=== PATIENT | female | born 1995 | race Caucasian/White ===

== ENCOUNTER 2016-08-09 21:59 | Emergency (ER) | payer OTHER ==
[2016-08-09 22:12] VITALS: BP 136/86
[2016-08-09] MEDS ORDERED: Ibuprofen TAB* 600 MG PO ONE (22:41)
--- NOTE | 2016-08-09 23:42 | ED ---
Upper Extremity Pain - HPI Summary HPI Summary: Rt hand dominant pt here w/ Rt wrist pain x 1 week. Progressively worsening. Burning aching pain in wrist that radiates up forearm/arm/shoulder and into thumb w/ wrist flexion and extension. 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 Denies numbness, weakness but difficulty gripping, carrying items due to pain. No previous h/o CTS. No acute injury to report. Denies bruising or redness. Has not tried anything for this pain yet. - History of Current Complaint Chief Complaint: EDExtremityUpper Stated Complaint: WRIST PAIN Time Seen by Provider: 08/09/16 22:40 Hx Obtained From: Patient Hx Last Menstrual Period: 07/24/13 - Allergies/Home Medications Allergies/Adverse Reactions: Allergies Allergy/AdvReac Type Severity Reaction Status Date / Time No Known Allergies Allergy Verified 02/14/16 17:55 PMH/Surg Hx/FS Hx/Imm Hx Previously Healthy: Yes Endocrine/Hematology History: Denies: Hx Diabetes, Hx Thyroid Disease Cardiovascular History: Denies: Hx Hypertension Respiratory History: Denies: Hx Asthma, Hx Chronic Obstructive Pulmonary Disease (COPD) GI History: Denies: Hx Ulcer Musculoskeletal History: Denies: Hx Arthritis, Hx Tendonitis, Hx of Fracture(s) Psychiatric History: Reports: Hx Anxiety, Hx Depression - Pt states she speaks to Dr. Dumont, PCP, Other Psychiatric Issues/Disorders - PTSD, possible ADD Denies: Hx Eating Disorder, Hx of Violent Episodes Against Others Infectious Disease History: Denies: Hx Hepatitis, Hx Human Immunodeficiency Virus (HIV), Traveled Outside the [place] in Last 30 Days - Family History Known Family History: Positive: None - Social History Occupation: Employed Full-time Lives: With Family Alcohol Use: None Hx Substance Use: No Substance Use Type: Reports: None Substance Use Comment - Amount & Last Used: denies drug use with Hx Tobacco Use: No Smoking Status (MU): Former Smoker Type: Cigarettes Amount Used/How Often: 5-6 cig./day Have You Smoked in the Last Year: Yes Review of Systems Negative: Fever, Chills Negative: Chest Pain Negative: Shortness Of Breath Gastrointestinal: Negative Positive: no symptoms reported Musculoskeletal: Other - see HPI Negative: Rash, Bruising Neurological: Other - see HPI Psychological: Normal All Other Systems Reviewed And Are Negative: Yes Physical Exam Triage Information Reviewed: Yes Vital Signs On Initial Exam: Initial Vitals Temp Pulse Resp BP Pulse Ox 97.4 F 106 20 136/86 100 08/09/16 22:10 08/09/16 22:10 08/09/16 22:10 08/09/16 22:10 08/09/16 22:10 Vital Signs Reviewed: Yes Appearance: Positive: Well-Appearing, No Pain Distress, Well-Nourished Skin: Positive: Warm, Dry - no erythema, no ecchymosis over affected area Head/Face: Positive: Normal Head/Face Inspection Eyes: Positive: Normal, EOMI ENT: Positive: Hearing grossly normal, Pharynx normal - mucosa moist Respiratory/Lung Sounds: Positive: Breath Sounds Present Cardiovascular: Positive: Normal, Pulses are Symmetrical in both Upper and Lower Extremities Musculoskeletal: Positive: Pain @ - Rt wrist extensor tendons are TTP; no edema or deformity observed - FROM wrist and fingers but hurts w/ attempt with full tax manager strength; limited wrist ROM d/t pain w/ flexion/extension; FROM elbow, shoulder and neck w/o pain or limitation Neurological: Positive: Normal, Sensory/Motor Intact, Alert, Oriented to Person Place, Time, CN Intact II-III Psychiatric: Positive: Other - flat affect Diagnostics - Vital Signs Vital Signs Temp Pulse Resp BP Pulse Ox 08/09/16 22:10 97.4 F 106 20 136/86 100 - Laboratory Lab Statement: Any lab studies that have been ordered have been reviewed, and results considered in the medical decision making process. Course/Dx - Course Course Of Treatment: Suspect pt's wrist/forearm pain are from reptitive motion causing tendonitis. Advised rest, heat w/ gentle stretches followed by ice, ibuprofen with food and wearing sopportive wrist gaurd. Follow-up with PCP. - Diagnoses Provider Diagnoses: Right wrist tendinitis Discharge - Discharge Plan Condition: Stable Disposition: HOME Patient Education Materials: Tendinitis (ED) Forms: *Work Release Referrals: Julia Espino MD [Primary Care Provider] - Additional Instructions: You appear to have a tendonitis of your wrist. You may try ice alternating with heat and gentle stretches. Rest and wear cock-up splint until cleared by PCP. You may also take ibuprofen and use topical analgesic rubs for pain relief. Follow-up with PCP this week. Call tomorrow to schedule an appointment.
--- NOTE | 2016-08-10 07:49 | RAD ---
INDICATION: Right wrist injury. TECHNIQUE: 3 views of the right wrist were obtained. FINDINGS: The bones are in normal alignment. No fracture is seen. Joint spaces appear maintained. IMPRESSION: NO EVIDENCE FOR FRACTURE.
== END 2016-08-10 00:03 | disposition home or self-care (01) ==
LOC: ED 21:59
DX: M77.9 Enthesopathy, unspecified (principal); M25.531 Pain in right wrist; Z87.891 Personal history of nicotine dependence
CPT/HCPCS: 99282; A9270-GY

== ENCOUNTER 2016-08-20 16:37 | Emergency (ER) | payer OTHER ==
[2016-08-20 17:13] VITALS: BP 111/83
--- NOTE | 2016-08-20 17:22 | UC ---
Lower Extremity/Ankle HPI - HPI Summary HPI Summary: Last night, she stubbed her right fourth toe on the couch. It was red and swollen. She took Ibuprofen and Tylenol with minimal relief of pain. She went to sleep, and when she woke up, the toe was more bruised. It hurts to bear weight on the foot. - History of Current Complaint Chief Complaint: UCLowerExtremity Stated Complaint: RIGHT FOOT,FOURTH TOE INJURY Time Seen by Provider: 08/20/16 17:12 Hx Obtained From: Patient Hx Last Menstrual Period: 08/20/16 Onset/Duration: Sudden Onset Severity Initially: Moderate Severity Currently: Moderate Aggravating Factor(s): Standing, Ambulation Alleviating Factor(s): Ice, OTC Meds Able to Bear Weight: Yes - With pain - Allergies/Home Medications Allergies/Adverse Reactions: Allergies Allergy/AdvReac Type Severity Reaction Status Date / Time No Known Allergies Allergy Verified 08/20/16 16:57 PMH/Surg Hx/FS Hx/Imm Hx Previously Healthy: Yes Endocrine History Of: Denies: Diabetes, Thyroid Disease Cardiovascular History Of: Denies: Cardiac Disorders, Hypertension Respiratory History Of: Denies: COPD, Asthma GI/ History Of: Denies: Ulcer Psychological History Of: Reports: Anxiety, Depression - Pt states she speaks to Dr. Dumont, PCP - Surgical History Surgical History: Yes Surgery Procedure, Year, and Place: - Family History Known Family History: Positive: None - Social History Occupation: Employed Part-time Lives: With Family Alcohol Use: None Substance Use Type: None Substance Use Comment - Amount & Last Used: denies drug use with Smoking Status (MU): Light Every Day Tobacco Smoker Type: Cigarettes Amount Used/How Often: 5-6 cig./day Have You Smoked in the Last Year: Yes When Did the Patient Quit Smoking/Using Tobacco: 2 MOS AGO. Household Exposure Type: Cigarettes - Immunization History Most Recent Influenza Vaccination: [facility]N Most Recent Tetanus Shot: unknown Most Recent Pneumonia Vaccination: NONE Vaccination Up to Date: Yes Review of Systems Constitutional: Negative Skin: Negative Eyes: Negative ENT: Negative Respiratory: Negative Cardiovascular: Negative Gastrointestinal: Negative Genitourinary: Negative Motor: Negative Neurovascular: Negative Musculoskeletal: Edema - Right toes, Other: - Bruising of right toes Neurological: Negative Psychological: Negative All Other Systems Reviewed And Are Negative: Yes Physical Exam Triage Information Reviewed: Yes Appearance: Well-Appearing, No Pain Distress, Well-Nourished Vital Signs: Initial Vital Signs Temp 98.9 F 08/20/16 16:58 Pulse 84 08/20/16 16:58 Resp 16 08/20/16 16:58 BP 111/83 08/20/16 16:58 Pulse Ox 98 08/20/16 16:58 Vital Signs Reviewed: Yes Eye Exam: Normal Eyes: Positive: Conjunctiva Clear ENT Exam: Normal Neck exam: Normal Neck: Positive: Supple, Nontender Respiratory Exam: Normal Respiratory: Positive: Chest non-tender, Lungs clear, Normal breath sounds Cardiovascular Exam: Normal Cardiovascular: Positive: RRR, No Murmur Musculoskeletal: Positive: Edema @ - Right third and fourth toes, Other: - Ecchymosis of right distal fourth toe. Pain with palpation. Good sensation of right toes and dorsalis pedis pulse is strong. Neurological Exam: Normal Neurological: Positive: Alert, Muscle Tone Normal Psychological Exam: Normal Psychological: Positive: Normal Response To Family, Age Appropriate Behavior Skin Exam: Normal Lower Extremity Course/Dx - Course Course Of Treatment: Patient is to follow-up with orthopedics in two weeks for suspected toe fracture. We will provide a post-op shoe for comfort with walking. We have instructed her to take Ibuprofen for pain and continue to use ice for the swelling. - Differential Dx/Diagnosis Differential Diagnosis/HQI/PQRI: Contusion, Dislocation, Fracture (Closed) Provider Diagnoses: R 4th toe base of middle phalanx fracture Discharge - Discharge Plan Condition: Stable Disposition: HOME Patient Education Materials: Toe Fracture (ED) Print Language: CHADIAN Referrals: Julia Espino MD [Primary Care Provider] - Terese Damon MD [Medical Doctor] - 2 Weeks Additional Instructions: This is most likely a toe fracture. We would like for you to follow-up with Dr. Damon in two weeks. We will provide a shoe for comfort with walking. Continue to ice and use Ibuprofen for swelling.
--- NOTE | 2016-08-20 18:01 | RAD ---
INDICATION: Fourth toe injury COMPARISON: None TECHNIQUE: AP, lateral, and oblique views were obtained. FINDINGS: There may be a tiny avulsion fracture from the dorsal aspect of the base of the middle phalanx. The bony structures, joint spaces, and soft tissues are otherwise normal IMPRESSION: PROBABLE TINY AVULSION FRACTURE DORSAL ASPECT OF THE BASE OF THE MIDDLE PHALANX
== END 2016-08-20 18:05 | disposition home or self-care (01) ==
LOC: UCCORT 16:37
DX: S92.531A Displaced fracture of distal phalanx of right lesser toe(s), initial encounter for closed fracture (principal); W22.03XA Walked into furniture, initial encounter; Y93.9 Activity, unspecified; Y92.9 Unspecified place or not applicable; F41.9 Anxiety disorder, unspecified; Z87.891 Personal history of nicotine dependence
CPT/HCPCS: 99212; G0463

== ENCOUNTER 2016-10-22 19:30 | Emergency (ER) | payer MEDICAID, OTHER ==
[2016-10-22 20:10] VITALS: BP 122/106
[2016-10-22] MEDS ORDERED: NS 0.9% 1000 ML* 2,000 ML IV ONE (20:16)
[2016-10-22] MEDS ORDERED: Morphine INJ* 4 MG/ML 1 ML SYRINGE IV ONE (20:16)
[2016-10-22] MEDS ORDERED: Ondansetron INJ* 2 MG/ML VIAL IV ONE (20:16)
[2016-10-22] MEDS ORDERED: Ondansetron ODT TAB* 4 MG PO ONE (20:29)
[2016-10-22] MEDS ORDERED: oxyCODONE/Acetamin 5/325 MG* TAB PO ONE (20:30)
[2016-10-22] MEDS ORDERED: Ondansetron ODT TAB* 4 MG ONE (20:32)
--- NOTE | 2016-10-22 21:52 | RAD ---
HISTORY: Left lower quadrant pain COMPARISONS: None TECHNIQUE: Multiple transverse and longitudinal ultrasound images were obtained of the pelvis using grayscale, color Doppler, and M-Mode Doppler imaging using the transabdominal transducer. FINDINGS: UTERUS: The uterus is normal in shape, size, contour, and echotexture. GESTATION: There is a single live intrauterine gestation. The crown-rump length measures 2.21 cm for a gestational age of 9 weeks, 0 days. The HELIO is May [birth year] 2012 based on the crown-rump length.. cardiac motion is detected at a rate of 165 beats per minute. movement is not identified. anatomy cannot be assessed secondary to early dates. The amniotic fluid is qualitatively normal. There are no retroplacental fluid collections. CUL-DE-SAC: There is no free fluid within the cul-de-sac. RIGHT OVARY: The right ovary measures 2.5 x 2.1 x 2.1 cm. LEFT OVARY: The left ovary measures 2.4 x 1.5 x 2.1 cm. BLADDER: The visualized bladder is unremarkable. IMPRESSION: SINGLE LIVE UTERINE GESTATION AT 9 WEEKS AND 0 DAYS BY CROWN-RUMP LENGTH
--- NOTE | 2016-10-22 21:53 | RAD ---
HISTORY: Left lower quadrant pain, left flank pain COMPARISONS: Pelvic ultrasound dated October 22, 2016 TECHNIQUE: Multiple transverse and longitudinal ultrasound images were obtained of the left kidney using grayscale and color Doppler imaging. FINDINGS: RIGHT KIDNEY: No images are submitted of the right kidney LEFT KIDNEY: The left kidney is normal in shape, size, contour, and echogenicity. There is no hydronephrosis or nephrolithiasis. The left kidney measures 12 x 5 x 5.3 cm. BLADDER: No images are submitted of the bladder. AORTA AND IVC: No images are submitted of the vasculature. RETROPERITONEUM: Unremarkable. OTHER: Again noted is a single live intrauterine gestation IMPRESSION: NO LEFT HYDRONEPHROSIS OR NEPHROLITHIASIS
[2016-10-22 23:11] LABS: Urine Bacteria 1+ (Absent); Urine Bilirubin Negative (Negative); Urine Glucose Negative (Negative); Urine Nitrite Negative (Negative)
[2016-10-22] MEDS ORDERED: Nitrofurantoin Macrocrystals* 100 MG CAP PO ONE (23:46)
--- NOTE | 2016-10-23 04:39 | ED ---
Claribel Kumar Rebecca, scribed for Geovany Montgomery MD on 10/22/16 at 2020 . - HPI Summary HPI Summary: Pt is a 21 y/o F who presents to ED c/o L flank and LLQ pain. Pain began suddenly last night at 2300 and has been constant since onset. Pain is discrete to the LLQ and L flank without radiation. Pain is currently severe, ranked 10/ 10 and characterized as sharp/stabbing. Sx aggravated by deep breaths, alleviated by nothing and she has not taken anything to treat the pain. Additionally c/o painful urination (characterized as stinging, not burning). Notes vomiting, which is typical morning sickness. Denies fever, chills, diarrhea, dysuria, vaginal discharge, vaginal bleeding, CP, SOB, sore throat and rhinorrhea. Denies any recent illness. Notes 2 not engorged ticks found on her earlier today. Unknown blood type. PMHx kidney infection. No PMHx kidney stones. FHx kidney stones and kidney infection (mother and grandmother). PSHx C- Section. She is 2 months with her LNMP at the end of June/ beginning of July. Has been seen by [facility] for her current . A0, giving 6 months ago to twins that she is currently bottle feeding. - History of Current Complaint Chief Complaint: EDFlankPain Stated Complaint: LEFT FLANK PAIN Time Seen by Provider: 10/22/16 20:00 Hx Obtained From: Patient Chief Complaint: Pain Onset/Duration: Started Days Ago - Last night at 2300, Still Present Timing: Constant Severity: Moderate Current Severity: Severe Pain Intensity: 10 Location of Pain: Left Side - LLQ, Flank - Left flank Character: Sharp Aggravating Factors: Other: - Deep breaths Alleviating Factors: Nothing Associated Signs and Symptoms: Positive: Urinary Symptoms - Painful urination ( sharp, but burning); Denies dysuria, Vomiting - typical morning sickness. Negative: Fever, Vaginal Bleeding or Discharge - Assessment Hx Now: Yes - 2 months SAB: 0 IEA: 0 - Additional Pertinent History Maternal Blood Type and Rh: O Positive - Allergies/Home Medications Allergies/Adverse Reactions: Allergies Allergy/AdvReac Type Severity Reaction Status Date / Time No Known Allergies Allergy Verified 10/22/16 19:43 PMH/Surg Hx/FS Hx/Imm Hx Endocrine/Hematology History: Denies: Hx Diabetes, Hx Thyroid Disease Cardiovascular History: Denies: Hx Hypertension Respiratory History: Denies: Hx Asthma, Hx Chronic Obstructive Pulmonary Disease (COPD) GI History: Denies: Hx Ulcer History: Reports: Hx Kidney Infection Denies: Hx Kidney Stones Musculoskeletal History: Denies: Hx Arthritis, Hx Tendonitis Psychiatric History: Reports: Hx Anxiety, Hx Depression - Pt states she speaks to Dr. Dumont, PCP, Other Psychiatric Issues/Disorders - PTSD, possible ADD Denies: Hx Eating Disorder, Hx of Violent Episodes Against Others - Surgical History Surgery Procedure, Year, and Place: Infectious Disease History: Denies: Hx Hepatitis, Hx Human Immunodeficiency Virus (HIV), Traveled Outside the [place] in Last 30 Days - Family History Known Family History: Positive: Renal Disease - Mother and grandmother, Other - Kidney stones (mother and grandmother) - Social History Alcohol Use: None Hx Substance Use: No Substance Use Type: Reports: None Substance Use Comment - Amount & Last Used: denies drug use with Hx Tobacco Use: No Smoking Status (MU): Former Smoker Type: Cigarettes Amount Used/How Often: 5-6 cig./day Have You Smoked in the Last Year: Yes Review of Systems Negative: Fever, Chills Negative: Sore Throat, Nasal Discharge Negative: Chest Pain Negative: Shortness Of Breath Positive: Abdominal Pain - LLQ, Vomiting - typical morning sickness. Negative: Diarrhea Positive: flank pain - L flank pain, pain - Painful urination (sharp), other - Denies vaginal bleeding or vaginal discharge. Negative: dysuria All Other Systems Reviewed And Are Negative: Yes Physical Exam - Summary Physical Exam Summary: The patient is well-nourished in no acute pain and in mild distress. The skin is warm and dry and skin color reflects adequate perfusion. Shows good skin turgor. HEENT: The head is normocephalic and atraumatic. The pupils are equal and reactive. The conjunctivae are clear and without drainage. Nares are patent and without drainage. Mouth reveals moist mucous membranes and the throat is without erythema and exudate. The external ears are intact. The ear canals are patent and without drainage. The tympanic membranes are intact. Neck is supple with full range of motion and non-tender. There are no carotid bruits. There is no neck vein distension. Respiratory: Chest is non-tender. Lungs are clear to auscultation and breath sounds are symmetrical and equal. Cardiovascular: Hear is regular rate and rhythm. There is no murmur or rub auscultated. There is no peripheral edema and pulses are symmetrical and equal. Abdomen: The abdomen is soft with L-sided abdominal pain and L flank pain with no guarding and no rebound. There is L CVA tenderness. There are normal bowel sounds heard in all four quadrants and there is no organomegaly palpated. Musculoskeletal: There is no back pain noted. Extremities are non-tender with full range of motion. There is good capillary refill. There is no peripheral edema or calf tenderness elicited. Neurological: Patient is alert and oriented to person, place and time. The patient has symmetrical motor strength in all four extremities. Cranial nerves are grossly intact. Deep tendon reflexes are symmetrical and equal in all four extremities. Psychiatric: The patient has an appropriate affect and does not exhibit any anxiety or depression. - Physical Exam Triage Information Reviewed: Yes Vital Signs Reviewed: Yes Diagnostics - Vital Signs Vital Signs Temp Pulse Resp BP Pulse Ox 10/22/16 19:40 99.2 F 87 16 110/68 99 - Laboratory Lab Results: Lab Results 10/22/16 Range/Units 22:55 Urine Color Yellow Urine Appearance Cloudy Urine pH 7.0 (5-9) Ur Specific [place] 1.003 L (1.010-1.030) Urine Protein Negative (Negative) Urine Ketones Negative (Negative) Urine Blood 2+ H (Negative) Urine Nitrate Negative (Negative) Urine Bilirubin Negative (Negative) Urine Urobilinogen Negative (Negative) Ur Leukocyte Esterase 3+ H (Negative) Urine WBC (Auto) 2+(11-20/hpf) H (Absent) Urine RBC (Auto) 1+(3-5/hpf) H (Absent) Ur Squamous Epith Cells Present H (Absent) Urine Bacteria 1+ H (Absent) Urine Glucose Negative (Negative) Lab Statement: Any lab studies that have been ordered have been reviewed, and results considered in the medical decision making process. - Ultrasound No standard instances Ultrasound Interpretation Completed By: Radiologist - US: SINGLE LIVE UTERINE GESTATION AT 9 WEEKS AND 0 DAYS BY CROWN-RUMP LENGTH. Renal US: NO LEFT HYDRONEPHROSIS OR NEPHROLITHIASIS Course/Dx - Course Assessment/Plan: Pt is a 2 months 21 y/o F with a CC of sudden onset, severe LLQ and L flank pain since last night at 2300. Additionally c/o painful urination (characterized as stinging, not burning). Notes vomiting, which is typical morning sickness. Denies fever, chills, diarrhea, dysuria, vaginal discharge, vaginal bleeding, CP, SOB, sore throat and rhinorrhea. PMHx kidney infection. FHx kidney infeciton and kidney stones. Pt refused labs though she ocnitnued to request pain and nausea medication. US reveals: "SINGLE LIVE UTERINE GESTATION AT 9 WEEKS AND 0 DAYS BY CROWN-RUMP LENGTH." Renal US reveals : "NO LEFT HYDRONEPHROSIS OR NEPHROLITHIASIS." US reveals: color: yellow, appearance: cloudy, specific gravity: 1.003, blood: 2+, leukocyte esterase: 3+, WBC: 2+, RBC: 1+, squamous epitherlial cells: present and bacteria: 1+. In the ED course, pt received Zofran PO. Pt will be D/C to home with Dx of UTI and Rx for Macrobid. - Differential Diagnosis/HQI/PQRI: Other: - uti, ectopic - Diagnoses Provider Diagnoses: UTI (urinary tract infection), Discharge - Discharge Plan Condition: Stable Disposition: HOME Prescriptions: Nitrofurantoin Monohyd Macro [Macrobid] 100 mg PO BID #[id number] cap Patient Education Materials: Urinary Tract Infection in (ED) Referrals: Julia Espino MD [Primary Care Provider] - 3 Days The documentation as recorded by the Claribel erickson Rebecca accurately reflects the service I personally performed and the decisions made by , Geovany Montgomery MD.
--- NOTE | 2016-10-25 11:13 | PN ---
Progress Note - Progress Note Note: Patient was diagnosed and treated for UTI. Was placed on Macrobid. Patient urine culture results were obtained and showed 75-100,000 growth of staphyloccus saprophyticus. Results states this bacteria typically responds commonly used to treat UTIs, including Macrobid. No further change needed at this time.
== END 2016-10-23 00:15 | disposition home or self-care (01) ==
LOC: ED 19:30
DX: O23.41 Unspecified infection of urinary tract in pregnancy, first trimester (principal); R10.32 Left lower quadrant pain; Z87.891 Personal history of nicotine dependence; Z3A.08 8 weeks gestation of pregnancy
CPT/HCPCS: 76775; 76801; 81003; 81015; 87077; 87086; 99282; A9270-GY

== ENCOUNTER 2017-04-02 12:01 | Emergency (ER) | payer OTHER ==
[2017-04-02] MEDS ORDERED: NS 0.9% 1000 ML* 1,000 ML IV ONE (12:35)
[2017-04-02 13:05] LABS: Urine Bacteria Absent (Absent); Urine Bilirubin Negative (Negative); Urine Glucose Negative (Negative); Urine Nitrite Negative (Negative); Urine Sperm Present (Absent)
[2017-04-02 13:22] LABS: Hematocrit 34 % (35-47); Hemoglobin 10.9 g/dl (12.0-16.0); Mean Corpuscular HGB Conc 32 g/dl (31-36); Mean Corpuscular Hemoglobin 29 pg (27-31); Mean Corpuscular Volume 90 fL (80-97); Mean Platelet Volume 7 um3 (7.4-10.4); Red Blood Count 3.75 10^6/ul (4.0-5.4); Red Cell Distribution Width 13 % (10.5-15); White Blood Count 11.2 10^3/ul (3.5-10.8)
[2017-04-02 13:28] LABS: Albumin 3.1 g/dL (3.2-5.2); BUN/Creatinine Ratio 9.1 (8-20); EGFR African American 179.4 (>60); EGFR Non-African American 139.5 (>60); Globulin 3.2 g/dL (2-4); Potassium 3.8 mmol/L (3.5-5.0); Total Bilirubin 0.2 mg/dL (0.2-1.0); Total Protein 6.3 g/dL (6.4-8.9)
[2017-04-02 15:12] VITALS: BP 104/56
--- NOTE | 2017-04-02 18:53 | ED ---
Librado Kumar Abhishek, scribed for Bryce Gonzalez MD on 04/02/17 at 1226 . HPI Chest Pain - HPI Summary HPI Summary: This patient is a 22 year old F presenting to [facility] with a chief complaint of chest pain discrete to the upper left side since two days ago. Pt is ( 32 weeks). Pt reports palpitations, chest pain and pelvic pain. The chest pain is described as sharp. Patient does not have full range of motion in her left arm. Pt also reports pressure and pain on the upper abd. Pt describes this pain as Like somebodies is pinching and putting a needle through the area. The patient rates the pain 6/10 in severity. Symptoms aggravated by stress. Symptoms alleviated by nothing. Pt is G2:P2:A0 currently (Second but 3 children). When asked if she had any cold like symptoms pt states that everyone in the whole house is sick. - History of Current Complaint Chief Complaint: EDOBProblems Time Seen by Provider: 04/02/17 12:05 Hx Obtained From: Patient Initial Severity: Moderate Current Severity: Moderate Pain Intensity: 6 Pain Scale Used: 0-10 Numeric Chest Pain Location: Discrete at: - upper left side Character: Sharp/Stabbing Aggravating Factor(s): Other: - stress Alleviating Factor(s): Nothing Associated Signs and Symptoms: Positive: Chest Pain, Recent Stress, Palpitations , Abdominal Pain - upper abd pain, Other: - pelvic pain - Allergy/Home Medications Allergies/Adverse Reactions: Allergies Allergy/AdvReac Type Severity Reaction Status Date / Time No Known Allergies Allergy Verified 10/22/16 19:43 PMH/Surg Hx/FS Hx/Imm Hx Endocrine/Hematology History: Denies: Hx Diabetes, Hx Thyroid Disease Cardiovascular History: Denies: Hx Hypertension Respiratory History: Denies: Hx Asthma, Hx Chronic Obstructive Pulmonary Disease (COPD) GI History: Denies: Hx Ulcer History: Reports: Hx Kidney Infection Denies: Hx Kidney Stones Musculoskeletal History: Denies: Hx Arthritis, Hx Tendonitis Psychiatric History: Reports: Hx Anxiety, Hx Depression - Pt states she speaks to Dr. Dumont, PCP, Other Psychiatric Issues/Disorders - PTSD, possible ADD Denies: Hx Eating Disorder, Hx of Violent Episodes Against Others - Surgical History Surgery Procedure, Year, and Place: - Immunization History Date of Tetanus Vaccine: unk Date of Influenza Vaccine: unk Infectious Disease History: No Infectious Disease History: Denies: Hx Hepatitis, Hx Human Immunodeficiency Virus (HIV), Traveled Outside the [place] in Last 30 Days - Family History Known Family History: Positive: Renal Disease - Mother and grandmother, Other - Kidney stones (mother and grandmother) - Social History Alcohol Use: None Hx Substance Use: No Substance Use Type: Reports: None Substance Use Comment - Amount & Last Used: denies drug use with Hx Tobacco Use: No Smoking Status (MU): Former Smoker Type: Cigarettes Amount Used/How Often: 5-6 cig./day Have You Smoked in the Last Year: Yes Review of Systems Positive: Other - Possible cold-like symptoms Eyes: Negative Positive: Palpitations, Chest Pain Positive: Abdominal Pain Genitourinary: Other - (32 weeks) Positive: Other - pelvic pain Psychological: Normal All Other Systems Reviewed And Are Negative: Yes Physical Exam - Summary Physical Exam Summary: Pt is a multidisciplinary, well developed and nourished female VITAL SIGNS: Reviewed. GENERAL: ~Patient is a well-developed and nourished (MALE OR FEMALE) who is lying comfortable in the stretcher. ~Patient is not in any acute respiratory distress. Good historian pleasant, HEAD AND FACE: No signs of trauma. ~No ecchymosis, hematomas or skull depressions. No sinus tenderness. EYES: PERRLA, EOMI x 2, No injected conjunctiva, no nystagmus. EARS: Hearing grossly intact. Ear canals and tympanic membranes are within normal limits. MOUTH: Oropharynx within normal limits. NECK: Supple, trachea is midline, no adenopathy, no JVD, no carotid bruit, no c- spine tenderness, neck with full ROM. CHEST: Chest tenderness is positive in the interior aspect LUNGS: Clear to auscultation bilaterally. No wheezing or crackles. CVS: Regular rate and rhythm, S1 and S2 present, no murmurs or gallops appreciated. ABDOMEN: Abd is soft and non-tender and distended secondary to above the umbilical EXTREMITIES: FROM in all major joints, no edema, no cyanosis or clubbing. NEURO: Alert and oriented x 3. No acute neurological deficits. Speech is normal and follows commands. SKIN: Dry and warm Triage Information Reviewed: Yes Vital Signs On Initial Exam: Initial Vitals Temp Pulse Resp BP Pulse Ox 97.8 F 110 16 115/71 97 04/02/17 12:03 04/02/17 12:03 04/02/17 12:03 04/02/17 12:03 04/02/17 12:03 Vital Signs Reviewed: Yes Diagnostics - Vital Signs Vital Signs Temp Pulse Resp BP Pulse Ox 04/02/17 12:03 97.8 F 110 16 115/71 97 - Laboratory Lab Results: Lab Results 04/02/17 04/02/17 04/02/17 Range/Units 12:50 12:57 12:57 WBC 11.2 H (3.5-10.8) 10^3/ul RBC 3.75 L (4.0-5.4) 10^6/ul Hgb 10.9 L (12.0-16.0) g/dl Hct 34 L (35-47) % MCV 90 (80-97) fL MCH 29 (27-31) pg MCHC 32 (31-36) g/dl RDW 13 (10.5-15) % Plt Count 330 (150-450) 10^3/ul MPV 7 L (7.4-10.4) um3 Neut % (Auto) 73.3 (38-83) % Lymph % (Auto) 13.9 L (25-47) % [place] % (Auto) 11.5 H (1-9) % Eos % (Auto) 0.9 (0-6) % Baso % (Auto) 0.4 (0-2) % Absolute Neuts (auto) 8.2 H (1.5-7.7) 10^3/ul Absolute Lymphs (auto) 1.6 (1.0-4.8) 10^3/ul Absolute Monos (auto) 1.3 H (0-0.8) 10^3/ul Absolute Eos (auto) 0.1 (0-0.6) 10^3/ul Absolute Basos (auto) 0 (0-0.2) 10^3/ul Absolute Nucleated RBC 0 10^3/ul Nucleated RBC % 0 Sodium 132 L (133-145) mmol/L Potassium 3.8 (3.5-5.0) mmol/L Chloride 106 (101-111) mmol/L Carbon Dioxide 20 L (22-32) mmol/L Anion Gap 6 (2-11) mmol/L BUN 5 L (6-24) mg/dL Creatinine 0.55 (0.51-0.95) mg/dL Est GFR ( Amer) 179.4 (>60) Est GFR (Non-Af Amer) 139.5 (>60) BUN/Creatinine Ratio 9.1 (8-20) Glucose 69 L (70-100) mg/dL Calcium 9.0 (8.6-10.3) mg/dL Total Bilirubin 0.20 (0.2-1.0) mg/dL AST 13 (13-39) U/L ALT 8 (7-52) U/L Alkaline Phosphatase 117 H (34-104) U/L Total Protein 6.3 L (6.4-8.9) g/dL Albumin 3.1 L (3.2-5.2) g/dL Globulin 3.2 (2-4) g/dL Albumin/Globulin Ratio 1.0 (1-3) Urine Color Yellow Urine Appearance Clear Urine pH 6.0 (5-9) Ur Specific [place] 1.005 L (1.010-1.030) Urine Protein Negative (Negative) Urine Ketones Negative (Negative) Urine Blood 1+ H (Negative) Urine Nitrate Negative (Negative) Urine Bilirubin Negative (Negative) Urine Urobilinogen Negative (Negative) Ur Leukocyte Esterase 2+ H (Negative) Urine WBC (Auto) 1+(6-10/hpf) H (Absent) Urine RBC (Auto) 1+(3-5/hpf) H (Absent) Ur Squamous Epith Cells Present H (Absent) Urine Bacteria Absent (Absent) Urine Sperm Present H (Absent) Urine Glucose Negative (Negative) Result Diagrams: 04/02/17 12:57 04/02/17 12:57 Lab Statement: Any lab studies that have been ordered have been reviewed, and results considered in the medical decision making process. Chest Pain Course/Dx - Course Assessment/Plan: In the ED course an IV access was obtained. Patient was placed in a shelter monitor. Patient was started with IV fluids. Labs without any significant abnormality except for wbc of 11.2 and slight anemia possible due to her . UA is contaminated. I discussed the case with Dr. Saunders (OB/ CREDIT RISK ANALYST) and he recommends for monitoring and if negative patient can be discharged home with f/u at CREDIT RISK ANALYST office. monitoring is found non reactive. I discussed all the findings and test results with the patient. Patient was instructed to return to the emergency room immediately if any of the symptoms return or worsens. Plan of care was discussed with the patient and understands and agrees. All questions were answered at patient satisfaction. There were no further complaints or concerns. - Diagnoses Provider Diagnoses: Atypical chest pain, Abdominal pain, Threatened miscarriage - Provider Notifications Discussed Care Of Patient With: Troy Vance Time Discussed With Above Provider: 15:04 Instructed by Provider To: Other - Discharge home Discharge - Discharge Plan Condition: Stable Disposition: HOME Patient Education Materials: Chest Pain (ED), Threatened Miscarriage (ED) Referrals: Julia Espino MD [Primary Care Provider] - The documentation as recorded by the Librado erickson Abhishek accurately reflects the service I personally performed and the decisions made by me, Bryce Gonzalez MD.
== END 2017-04-02 15:52 | disposition home or self-care (01) ==
LOC: ED 12:01
DX: R07.89 Other chest pain (principal); O20.0 Threatened abortion; Z3A.32 32 weeks gestation of pregnancy; R10.10 Upper abdominal pain, unspecified; R00.2 Palpitations; R10.2 Pelvic and perineal pain; Z87.891 Personal history of nicotine dependence
CPT/HCPCS: 36415; 80053; 81003; 81015; 85025; 87086; 99283

== ENCOUNTER 2017-05-20 05:32 | Inpatient (IN) | payer OTHER ==
[2017-05-20 06:17] LABS: ABS Basophils 0 10^3/ul (0-0.2); ABS Eosinophils 0.1 10^3/ul (0-0.6); ABS Lymphocytes 2.4 10^3/ul (1.0-4.8); ABS Monocytes 1.1 10^3/ul (0-0.8); ABS Neutrophils 7.5 10^3/ul (1.5-7.7); ABS Nucleated RBC 0 10^3/ul; Eosinophil % 1.3 % (0-6); Hematocrit 32 % (35-47); Hemoglobin 10.7 g/dl (12.0-16.0); Lymphocyte % 21.7 % (25-47); Mean Corpuscular HGB Conc 33 g/dl (31-36); Mean Corpuscular Hemoglobin 28 pg (27-31); Mean Corpuscular Volume 84 fL (80-97); Mean Platelet Volume 8 um3 (7.4-10.4); Nucleated Red Blood Cells % 0; Platelet Count 389 10^3/ul (150-450); Red Blood Count 3.87 10^6/ul (4.0-5.4); Red Cell Distribution Width 14 % (10.5-15); White Blood Count 11.2 10^3/ul (3.5-10.8)
[2017-05-20] MEDS ORDERED: ceFOXitin 2 GM IVPREMIX* 2 GM/50 ML BAG IVPB ONE (07:34)
[2017-05-20] MEDS ORDERED: Sodium Citrate/Citric Acid* 15 ML UDC ONE (07:56)
[2017-05-20] MEDS ORDERED: Morphine PF AMP (0.5MG/ML)* 5 MG/10 ML AMP ONE (08:08)
[2017-05-20] MEDS ORDERED: OXYTOCIN* 10 UNITS/ML 1 ML VIAL ONE (08:08)
[2017-05-20] MEDS ORDERED: Naloxone* 0.4 MG/ML 1 ML VIAL IV PRN ×2 (08:18→09:22)
[2017-05-20] MEDS ORDERED: PROCHLORPERAZINE INJ 5 MG/ML 2 ML VIAL IV PRN ×2 (08:18→09:22)
[2017-05-20] MEDS ORDERED: fentaNYL* 50 MCG/ML 2 ML VIAL (100 MCG VIAL) IV PRN (08:18)
[2017-05-20] MEDS ORDERED: oxyCODONE TAB* 5 MG TAB PO PRN ×2 (08:18→09:22)
[2017-05-20] MEDS ORDERED: Acetaminophen IV 1GM/100ML * 1,000 MG/100 ML VIAL IVPB ONE (08:18)
[2017-05-20] MEDS ORDERED: Midazolam* 1 MG/ML 5 ML VIAL (5 MG) ONE (08:30)
[2017-05-20] MEDS ORDERED: Phenylephrine IV* 40 MCG/ML 10 ML SYRINGE ONE (08:59)
[2017-05-20] MEDS ORDERED: Ketorolac INJ* 30 MG/ML 1 ML VIAL IV SCH (09:00)
[2017-05-20] MEDS ORDERED: Dexamethasone IV* 4 MG/ML 1 ML (4 MG) ONE (09:06)
[2017-05-20] MEDS ORDERED: Ondansetron INJ* 2 MG/ML VIAL ONE (09:06)
[2017-05-20] MEDS ORDERED: Nalbuphine* 20 MG/ML 1 ML VIAL IV PRN (09:22)
[2017-05-20] MEDS ORDERED: Measles, Mumps,Rubella VACC* 0.5 ML/VIAL SUBCUT ONE (10:21)
[2017-05-20] MEDS ORDERED: Witch Hazel PAD* JAR TOPICAL PRN (10:21)
[2017-05-20] MEDS: Ketorolac INJ* 30 MG/ML 1 ML VIAL IV PRN ×2 (12:28→23:01)
[2017-05-20] MEDS: Docusate CAP* 100 MG PO SCH ×2 (13:54→21:30)
[2017-05-20] MEDS: Simethicone TAB* 80 MG TAB.CHEW PO SCH ×3 (13:54→21:30)
[2017-05-20] MEDS ORDERED: Nicotine Inhaler* 10 MG AMP INH PRN (18:32)
[2017-05-20] MEDS ORDERED: Mouth Piece, Nicotine* 1 EACH CARTRIDGE INH ONE (18:32)
[2017-05-20] MEDS ORDERED: Nicotine Inhaler* 10 MG AMP ONE (19:55)
[2017-05-20] MEDS ORDERED: Mouth Piece, Nicotine* 1 EACH CARTRIDGE ONE (19:55)
[2017-05-20] MEDS: Acetaminophen TAB* 325 MG PO SCH (21:55)
--- NOTE | 2017-05-21 01:50 | OP ---
DATE OF OPERATION: 05/20/17 - ROOM #MCHOB-[id number] DATE OF : [birth year] SURGEON: Avi Sarah MD PHOTOGRAPHER HELPER: ISREAL Nicolas. ANESTHESIOLOGIST: Dr. Mahoney. ANESTHESIA: Spinal. PRE-OP DIAGNOSES: History of previous , active labor at 38 plus 4 weeks gestation and satisfied parity. POST-OP DIAGNOSES: History of previous , active labor at 38 plus 4 weeks gestation and satisfied parity. OPERATIVE PROCEDURE: Repeat low transverse section and bilateral tubal ligation. ESTIMATED BLOOD LOSS: 700 cc. URINE OUTPUT: 350 cc. IV FLUIDS: 3000 cc lactated Ringer's. MATERIALS TO LAB: Cord blood and bilateral cord segments. INDICATIONS: This patient was a 22-year-old 2 para 1-0-0-2 with a history of a prior section with twins. The patient had also expressed a strong desire for permanent sterilization during her and she was counseled multiple times. Consent was signed for the sterilization a couple of months earlier. The patient presented today with fairly regular contractions, but with initially only minimal cervical dilation. However, contraction strength became substantially stronger and became very regular, about every three minutes. The patient was already scheduled for a repeat section this coming week, so the decision was made to proceed with this morning. She was extensively counseled again and consent was signed. The patient again desired to have permanent sterilization. FINDINGS: Normal-appearing uterus, fallopian tubes, and ovaries. Delivery was productive of a male , weighing 7 pounds with Apgars of 4 and 7. Tubal ligation was performed using bilateral fimbriectomy. The patient had to be given sedation in order to tolerate the spinal anesthetic due to substantial anxiety and inability to tolerate the thought of her spinal anesthetic. Due to this, the had significant sedation on delivery. COMPLICATIONS: None. DESCRIPTION OF PROCEDURE: The risks, benefits, and alternatives were described to the patient, and informed consent was obtained. The patient was taken to the operating room with IV running, where after sedation was administered, spinal anesthesia was induced and found to be adequate. The patient was prepped and draped in the normal sterile fashion in the dorsal supine position with a leftward tilt. A Pfannenstiel skin incision was made with a scalpel through the patient's previous incision. This was carried down to the underlying fascia using the scalpel. The fascia was scored in the midline, and the incision was extended using Jimenez scissors. The fascia was dissected off the underlying rectus muscles using blunt and sharp dissection. The rectus muscles were in the midline using dissection with a Cassandra clamp. The peritoneum was then entered bluntly. A bladder blade was placed. A bladder flap was created sharply using Metzenbaum scissors. A low transverse uterine incision was then made with the scalpel. This was carried down to the amniotic membranes. The membranes were then ruptured, productive of clear fluid. The uterine incision was extended using blunt traction. The head was elevated to the level of the incision, and, with fundal pressure, the head delivered without difficulty. The shoulders then were also both delivered and the body followed. The infant had fairly poor tone. The cord was doubly clamped and cut. The infant was then handed to the awaiting station worker. Cord blood was collected. The placenta was delivered with manual extraction. The uterus was then exteriorized and cleared of all clots and debris. The uterine incision was then reapproximated using 0 Polysorb in a running-locked fashion. A second layer of imbricating 0 Polysorb sutures was then also placed for good hemostasis. The right fallopian tube was grasped at the fibriated end , and the distal 1/3 of the tube was clamped off with a long Cassandra clamp. A 3- 0 Vicryl tie was placed under the clamp, followed by another 3-0 Vicryl stitch The tube segment was then excised with Metzenbaum scissors and there was good hemostasis. The same was then performed on the patient's left tube, again with excellent hemostasis. The posterior cul-de-sac was irrigated with saline. The uterus was then returned to the abdomen. The incision and tubal sites were reinspected and still noted to be hemostatic. The peritoneum was closed with 3- 0 Polysorb in a running fashion. The fascia was closed with 0 Polysorb in a running fashion. The subcutaneous tissues were copiously irrigated and made hemostatic using the Bovie. The skin was then closed with 4-0 Monocryl in a subcuticular stitch. A sterile bandage was then placed over the incision. The patient tolerated the procedure well. Sponge, lap, and needle counts were correct x2. [id number]/[facility] #: [id number] [facility]
[2017-05-21 06:36] LABS: ABS Basophils 0 10^3/ul (0-0.2); ABS Eosinophils 0.1 10^3/ul (0-0.6); ABS Lymphocytes 3.3 10^3/ul (1.0-4.8); ABS Monocytes 1.5 10^3/ul (0-0.8); ABS Neutrophils 11.5 10^3/ul (1.5-7.7); ABS Nucleated RBC 0 10^3/ul; Eosinophil % 0.4 % (0-6); Hematocrit 27 % (35-47); Lymphocyte % 19.9 % (25-47); Mean Corpuscular HGB Conc 33 g/dl (31-36); Mean Corpuscular Hemoglobin 28 pg (27-31); Mean Corpuscular Volume 84 fL (80-97); Mean Platelet Volume 8 um3 (7.4-10.4); Nucleated Red Blood Cells % 0; Platelet Count 329 10^3/ul (150-450); Red Blood Count 3.23 10^6/ul (4.0-5.4); Red Cell Distribution Width 14 % (10.5-15); White Blood Count 16.4 10^3/ul (3.5-10.8)
[2017-05-21] MEDS: Ketorolac INJ* 30 MG/ML 1 ML VIAL IV PUSH SCH (07:54)
[2017-05-21] MEDS: Ferrous Gluconate TAB* 324 MG TAB PO SCH ×2 (09:29→22:00)
[2017-05-21] MEDS: Simethicone TAB* 80 MG TAB.CHEW PO SCH ×4 (09:29→22:00)
[2017-05-21] MEDS: Docusate CAP* 100 MG PO SCH ×3 (09:29→22:00)
[2017-05-21] MEDS: oxyCODONE/Acetamin 5/325 MG* TAB PO PRN ×4 (09:30→22:01)
[2017-05-21] MEDS ORDERED: Oxytocin in LR* 20 UNITS/1,000 ML BAG IVPB ONE (11:57)
[2017-05-21] MEDS: Acetaminophen TAB* 325 MG PO SCH (12:47)
[2017-05-21] MEDS ORDERED: Ibuprofen TAB* 600 MG ONE (15:47)
[2017-05-21] MEDS: Ibuprofen TAB* 600 MG PO SCH (17:41)
[2017-05-21] MEDS: Citalopram TAB* 20 MG PO SCH (22:01)
[2017-05-22] MEDS: Ibuprofen TAB* 600 MG PO SCH ×4 (00:50→22:15)
[2017-05-22] MEDS: Docusate CAP* 100 MG PO SCH ×3 (08:13→19:33)
[2017-05-22] MEDS: Simethicone TAB* 80 MG TAB.CHEW PO SCH ×4 (08:13→19:33)
[2017-05-22] MEDS: oxyCODONE/Acetamin 5/325 MG* TAB PO PRN ×3 (08:13→19:33)
[2017-05-22] MEDS: Ferrous Gluconate TAB* 324 MG TAB PO SCH ×2 (08:14→19:33)
[2017-05-22] MEDS: Citalopram TAB* 20 MG PO SCH (08:14)
[2017-05-22] MEDS: Acetaminophen TAB* 325 MG PO SCH (13:18)
[2017-05-22] MEDS: Ketorolac INJ* 30 MG/ML 1 ML VIAL IV PUSH SCH (13:18)
[2017-05-22] MEDS: Amoxicillin PO (*) 500 MG CAP PO SCH (22:15)
[2017-05-23] MEDS: oxyCODONE/Acetamin 5/325 MG* TAB PO PRN ×3 (03:28→14:23)
[2017-05-23 08:24] VITALS: BP 114/71
[2017-05-23] MEDS: Ferrous Gluconate TAB* 324 MG TAB PO SCH (09:27)
[2017-05-23] MEDS: Citalopram TAB* 20 MG PO SCH (09:27)
[2017-05-23] MEDS: Simethicone TAB* 80 MG TAB.CHEW PO SCH ×2 (09:27→14:19)
[2017-05-23] MEDS: Amoxicillin PO (*) 500 MG CAP PO SCH (09:27)
[2017-05-23] MEDS: Docusate CAP* 100 MG PO SCH ×2 (09:27→14:19)
[2017-05-23] MEDS: Ibuprofen TAB* 600 MG PO SCH ×3 (09:33→16:14)
== END 2017-05-23 17:20 | disposition home or self-care (01) | DRG 540 ==
LOC: MCHOBOUT 05:32 → MCHOB 07:35
PROVIDERS: ADMIT Obstetrics & Gynecology; ATTEND Obstetrics & Gynecology
PROC: 0UB70ZZ Excision of Bilateral Fallopian Tubes, Open Approach (ICD-10-PCS; 2017-05-20)
PROC: 10907ZC Drainage of Amniotic Fluid, Therapeutic from Products of Conception, Via Natural or Artificial Opening (ICD-10-PCS; 2017-05-20)
PROC: 10D00Z1 Extraction of Products of Conception, Low, Open Approach (ICD-10-PCS; principal; 2017-05-20 08:25)
DX: O60.23X1 Term delivery with preterm labor, third trimester, fetus 1 (principal); D64.9 Anemia, unspecified; O77.0 Labor and delivery complicated by meconium in amniotic fluid; O99.344 Other mental disorders complicating childbirth; F41.8 Other specified anxiety disorders; O69.2XX0 Labor and delivery complicated by other cord entanglement, with compression, not applicable or unspecified; O90.81 Anemia of the puerperium; Z3A.38 38 weeks gestation of pregnancy; Z37.0 Single live birth; Z30.2 Encounter for sterilization
CPT/HCPCS: 36415; 80307; 85025; 86850; 86900; 86901; 88302; A9270-GY; J0694; J1100; J1885; J2250; J2300; J2405; J2590

== ENCOUNTER 2018-02-20 21:54 | Emergency (ER) | payer OTHER ==
[2018-02-20] MEDS ORDERED: HYDROcodone/ACETAMIN 5-325 MG* 1 TAB PO ONE (22:41)
[2018-02-20] MEDS ORDERED: Clindamycin 300 MG IVPREMIX(* 300 MG/50 ML SDV IV SCH (23:45)
--- NOTE | 2018-02-20 23:48 | ED ---
Throat Pain/Nasal Congestion - HPI Summary HPI Summary: 22-year-old female presents with right-sided dental pain. She states that she was seen at her dentist earlier today and she had an abscess on the right side. She states that it started on clindamycin. States she went home and noticed increased swelling to the right side of her face. She denies any fevers. No chest pain or shortness of breath. No difficulty swelling. She has no medical conditions. She's been taking an NSAID for pain and is not helping. - History of Current Complaint Chief Complaint: EDFacialInjury Time Seen by Provider: 02/20/18 22:03 - Allergies/Home Medications Allergies/Adverse Reactions: Allergies Allergy/AdvReac Type Severity Reaction Status Date / Time No Known Allergies Allergy Verified 02/20/18 22:20 Home Medications: Home Medications Clindamycin HCl 300 mg PO QID 02/20/18 [History Confirmed 02/20/18] Diflunisal TAB* [Dolobid TAB*] 500 mg PO Q8HR PRN 02/20/18 [History Confirmed ] PMH/Surg Hx/FS Hx/Imm Hx Endocrine/Hematology History: Denies: Hx Diabetes, Hx Thyroid Disease Cardiovascular History: Denies: Hx Hypertension Respiratory History: Denies: Hx Asthma, Hx Chronic Obstructive Pulmonary Disease (COPD) GI History: Denies: Hx Ulcer History: Reports: Hx Kidney Infection Denies: Hx Kidney Stones Musculoskeletal History: Denies: Hx Arthritis, Hx Tendonitis Psychiatric History: Reports: Hx Anxiety, Hx Depression - Pt states she speaks to Dr. Dumont, PCP, Other Psychiatric Issues/Disorders - PTSD, possible ADD Denies: Hx Eating Disorder, Hx of Violent Episodes Against Others - Surgical History Surgery Procedure, Year, and Place: - Immunization History Date of Tetanus Vaccine: unk Date of Influenza Vaccine: unk Immunizations Up to Date: Yes Infectious Disease History: Unable to Obtain/Confirm Infectious Disease History: Denies: Hx Hepatitis, Hx Human Immunodeficiency Virus (HIV), Traveled Outside the [place] in Last 30 Days - Family History Known Family History: Positive: None, Renal Disease - Mother and grandmother, Other - Kidney stones (mother and grandmother) - Social History Alcohol Use: None Hx Substance Use: No Substance Use Type: Reports: None Substance Use Comment - Amount & Last Used: denies drug use with Hx Tobacco Use: No Smoking Status (MU): Light Every Day Tobacco Smoker Type: Cigarettes Amount Used/How Often: 5-6 cig./day Have You Smoked in the Last Year: Yes Review of Systems Negative: Fever Positive: Dental Pain Negative: Chest Pain Negative: Shortness Of Breath All Other Systems Reviewed And Are Negative: Yes Physical Exam Triage Information Reviewed: Yes Vital Signs On Initial Exam: Initial Vitals Temp Pulse Resp BP Pulse Ox 98.6 F 71 16 108/82 98 02/20/18 22:18 02/20/18 22:18 02/20/18 22:18 02/20/18 22:18 02/20/18 22:18 Vital Signs Reviewed: Yes Appearance: Positive: Well-Appearing Skin: Positive: Warm, Dry Head/Face: Positive: Normal Head/Face Inspection, Other - swelling to right side of mouth Eyes: Positive: Normal, EOMI, WILDER, Conjunctiva Clear ENT: Positive: Normal ENT inspection, Pharynx normal, TMs normal Respiratory/Lung Sounds: Positive: Clear to Auscultation, Breath Sounds Present Cardiovascular: Positive: Normal, RRR Musculoskeletal: Positive: Normal Neurological: Positive: Normal Psychiatric: Positive: Normal Diagnostics - Vital Signs Vital Signs Temp Pulse Resp BP Pulse Ox 02/20/18 22:18 98.6 F 71 16 108/82 98 - Laboratory Lab Statement: Any lab studies that have been ordered have been reviewed, and results considered in the medical decision making process. EENT Course/Dx - Course Course Of Treatment: 22-year-old female presents with right-sided dental pain. She states that she was seen at her dentist earlier today and she had an abscess on the right side. She states that it started on clindamycin. States she went home and noticed increased swelling to the right side of her face. She denies any fevers. No chest pain or shortness of breath. No difficulty swelling. She has no medical conditions. She's been taking an NSAID for pain and is not helping. On exam has swelling to the right side of face. Tenderness over tooth 29. No area of flautance noted. Gave a dose of IV Clinda. Gave short course of the pain medication. Told to follow up with dentist. Patient understands agrees with plan. - Differential Diagnoses Differential Diagnoses: Dental Abscess, Dental Caries, Fractured Tooth - Diagnoses Provider Diagnoses: Dental abscess Discharge - Sign-Out/Discharge Documenting (check all that apply): Patient Departure - Discharge Plan Condition: Good Disposition: HOME Prescriptions: oxyCODONE/Acetamin 5/325 MG* [Percocet 5/325 TAB*] 1 tab PO Q6H PRN #12 tab MDD 4 PRN Reason: Pain Patient Education Materials: Dental Abscess (ED) Referrals: No Primary Care Phys,NOPCP [Primary Care Provider] - Additional Instructions: take antibiotic as prescribed by dentist Will add on percocet every 6 hours for break through pain Place heat on the area Return to ED if develop any fever, chest pain, shortness of breath or any new or worsening symptoms - Billing Disposition and Condition Condition: GOOD Disposition: Home Images - Images Dental: 1 - abscess
[2018-02-21 01:27] VITALS: BP 132/80
== END 2018-02-21 01:24 | disposition home or self-care (01) ==
LOC: ED 21:54
DX: K04.7 Periapical abscess without sinus (principal)
CPT/HCPCS: 96374; 99282

== ENCOUNTER 2018-04-29 16:27 | Emergency (ER) | payer OTHER ==
[2018-04-29] MEDS ORDERED: Benzocaine/Butamben/Tetracain (CETACAINE - SINGLE USE) 5 gm TOPICAL ONE (16:33)
--- NOTE | 2018-04-29 16:33 | ED ---
Abdominal Pain/Female - HPI Summary HPI Summary: Pt is a 23 y/o female brought in by EMS who presents to the ED c/o vaginal pain since 10:00 this morning. She has a hx of Bartholins cysts and states this feels the same. She also c/o lower abdominal pain. Pt has three children, and denies any current . She has not taken any OTC medications for her pain. Pt smokes 1 ppd. - History of Current Complaint Stated Complaint: ABD PAIN Hx Obtained From: Patient, EMS Hx Last Menstrual Period: 07/24/13 Onset/Duration: Gradual Onset, Lasting Hours - 10:00, Still Present Timing: Constant Location: Other - Vaginal, lower abdomen Aggravating Factor(s): Nothing Alleviating Factor(s): Nothing Associated Signs and Symptoms: Positive: Negative Allergies/Adverse Reactions: Allergies Allergy/AdvReac Type Severity Reaction Status Date / Time No Known Allergies Allergy Verified 04/29/18 16:28 Home Medications: Home Medications Hydralazine HCl 25 mg PO DAILY 04/29/18 [History Confirmed 04/29/18] PMH/Surg Hx/FS Hx/Imm Hx Endocrine/Hematology History: Denies: Hx Diabetes, Hx Thyroid Disease Cardiovascular History: Denies: Hx Hypertension Respiratory History: Denies: Hx Asthma, Hx Chronic Obstructive Pulmonary Disease (COPD) GI History: Denies: Hx Ulcer History: Reports: Hx Kidney Infection, Other Problems/Disorders - bartholin's cyst Denies: Hx Kidney Stones Musculoskeletal History: Denies: Hx Arthritis, Hx Tendonitis Psychiatric History: Reports: Hx Anxiety, Hx Depression - Pt states she speaks to Dr. Dumont, PCP, Other Psychiatric Issues/Disorders - PTSD, possible ADD Denies: Hx Eating Disorder, Hx of Violent Episodes Against Others - Surgical History Surgery Procedure, Year, and Place: - Immunization History Date of Tetanus Vaccine: unk Date of Influenza Vaccine: unk Infectious Disease History: Denies: Hx Hepatitis, Hx Human Immunodeficiency Virus (HIV) - Family History Known Family History: Positive: Renal Disease - kidney stones - Social History Alcohol Use: None Hx Substance Use: No Substance Use Type: Reports: None Substance Use Comment - Amount & Last Used: denies drug use with Hx Tobacco Use: Yes Smoking Status (MU): Light Every Day Tobacco Smoker Type: Cigarettes Amount Used/How Often: 5-6 cig./day Have You Smoked in the Last Year: Yes Review of Systems Positive: Abdominal Pain Positive: other - cyst All Other Systems Reviewed And Are Negative: Yes Physical Exam - Summary Physical Exam Summary: Appearance: Well appearing, no pain distress Skin: warm, dry, reflects adequate perfusion Head/face: normal Eyes: EOMI, WILDER ENT: mucous membranes moist Neck: supple, non-tender Respiratory: CTA, breath sounds present Cardiovascular: RRR, pulses symmetrical Abdomen: non-tender, soft Bowel Sounds: present Musculoskeletal: normal, strength/ROM intact Neuro: normal, sensory motor intact, A&Ox3 Triage Information Reviewed: Yes Vital Signs Reviewed: Yes Procedures - Incision and Drainage L labia Site: L bartholin's gland, medial labia minora Anesthesia: Topical - Cetacaine, Local - 1cc 0.5% Bupivicaine with epi Instrument(s): Scalpel - 11 blade Packing: Other - culture taken. No packing. Decompressed fully of a mucousy substance Abdominal Pain Fem Course/Dx - Course Course Of Treatment: Nurse's note reviewed. Fully decompressed Bartholin's gland cyst with incision and drainage. Word catheter not available. - Diagnoses Differential Diagnosis: Positive: Other - Labial abscess versus Bartholin's gland cyst Provider Diagnoses: Bartholin's cyst Discharge - Sign-Out/Discharge Documenting (check all that apply): Patient Departure - Discharge - Discharge Plan Condition: Improved Disposition: HOME Prescriptions: Lidocaine 2% JELLY* 1 applic TOPICAL TID PRN 3 Days #1 tube PRN Reason: cyst pain Sulfamethox/Trimethoprim DS* [Bactrim DS 800/160 TAB*] 1 tab PO BID #10 tab Patient Education Materials: Bartholin Cyst (ED) Referrals: [facility] [Outside] [facility] [facility]YS[facility]IAN REFERRAL [Outside] Additional Instructions: Warm compresses to the area. Follow-up with your AIX SYSTEM ADMINISTRATOR or with a primary care doctor as needed. Return with fever, increased size, worse, new symptoms or other concerns. - Billing Disposition and Condition Condition: IMPROVED Disposition: Home - Attestation Statements Document Initiated by Scribe: Yes Documenting Scribe: Mira Cotton Provider For Whom Scribe is Documenting (Include Credential): Jose Ott MD Scribe Attestation: Mira Kumar, scribed for Jose Ott MD on 04/29/18 at 1739. Scribe Documentation Reviewed: Yes Provider Attestation: The documentation as recorded by the scribe, Mira Cotton accurately reflects the service I personally performed and the decisions made by me, Jose Ott MD Status of Scribe Document: Viewed
[2018-04-29 17:22] VITALS: BP 130/80
--- NOTE | 2018-05-02 08:44 | ED ---
Progress - Progress Note Progress Note: Patient's genital culture reveals Gardnerella. She was prescribed Bactrim for inflamed and possibly infected Bartholin cyst. This will not cover Gardnerella so metronidazole will be sent to her pharmacy. [facility] in [place]. Education provided and questions answered. Patient agrees to follow-up with her OB and return to the emergency department if she develops any danger signs or symptoms in the meantime. She was also instructed to continue her Bactrim as this was most likely prescribed for her cyst. Patient agrees with plan. Course/Dx - Course Course Of Treatment: Nurse's note reviewed. Fully decompressed Bartholin's gland cyst with incision and drainage. Word catheter not available. - Diagnoses Provider Diagnoses: Bartholin's cyst Discharge - Sign-Out/Discharge Documenting (check all that apply): Post-Discharge Follow Up - Discharge Plan Condition: Improved Disposition: HOME Prescriptions: Lidocaine 2% JELLY* 1 applic TOPICAL TID PRN 3 Days #1 tube PRN Reason: cyst pain Sulfamethox/Trimethoprim DS* [Bactrim DS 800/160 TAB*] 1 tab PO BID #10 tab Patient Education Materials: Bartholin Cyst (ED) Referrals[facility] [Outside] [facility] [place] [facility] [Outside] Additional Instructions: Warm compresses to the area. Follow-up with your [employer] or with a primary care doctor as needed. Return with fever, increased size, worse, new symptoms or other concerns. - Billing Disposition and Condition Condition: IMPROVED Disposition: Home
== END 2018-04-29 17:21 | disposition home or self-care (01) ==
LOC: ED 16:27
DX: N75.0 Cyst of Bartholin's gland (principal); R10.2 Pelvic and perineal pain; F17.210 Nicotine dependence, cigarettes, uncomplicated; R10.9 Unspecified abdominal pain
CPT/HCPCS: 10060; 56405; 87070; 87077; 99282